=== PATIENT | female | born 2000 | race American Indian/Alaskan Native ===

== ENCOUNTER 2018-12-11 18:59 | Emergency (ER) | payer SELFPAY ==
--- NOTE | 2018-12-11 19:48 | Event Note ---
ED Screening Note Date of service: 12/11/18 Time: 19:46 ED Screening Note: This is a 18 y.o. F. that presents to the ER with laceration to left 5th finger. 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 This initial assessment/diagnostic orders/clinical plan/treatment(s) is/are subject to change based on patients health status, clinical progression and re- assessment by fellow clinical providers in the ED. Further treatment and workup at subsequent clinical providers discretion. Patient/guardian urged not to elope from the ED as their condition may be serious if not clinically assessed and managed. Initial orders include: XR fingers
--- NOTE | 2018-12-11 20:13 | XRay Report ---
LEFT LITTLE FINGER 3 VIEWS INDICATION: MAIN: r/o foreign object 5th finger...PT SD CUT WITH GLASS TDY..JTS. COMPARISON: No relevant prior imaging study available. FINDINGS: There is no acute skeletal abnormality. No radiodense foreign bodies are seen. There is mild soft tis kourtney swelling along the ulnar aspect of the little finger superficial to the PIP articulation. IMPRESSION: 1. No radiodense foreign bodies. Signer Name: Omari Jo MD Signed: 12/11/2018 8:08 PM Workstation Name: [id number]
--- NOTE | 2018-12-11 22:54 | Emergency Department Report ---
ED Laceration HPI - HPI Chief Complaint: Wound/Laceration Stated Complaint: LACERATION ON L FINGER Time Seen by Provider: 12/11/18 19:45 Occurred When: Today Location: Upper Extremity (left small finger with laceration) Severity: severe (7/10 initially but no pain now) Tetanus Status: Up to Date (2 years ago) Laceration Symptoms: Yes Pain (initially but none now), No Foreign Body Sensation, No Numbness, No Weakness Other History: This is a 18-year-old female who reports that couple hours prior to coming to the emergency room she cut her finger on glass object and she was having a lot of bleeding and she placed pressure and stop bleeding but she is here to be evaluated. Tetanus vaccines up-to-date per patient. Denies any numbness or tingling to left hand or small finger were cut is located. Pain is 7 out of 10 initially but she said she is really not having any pain at present unless it is touch. Denies any difficulty in moving fingers of left hand. ED Review of Systems ROS: Stated complaint: LACERATION ON L FINGER Other details as noted in HPI Constitutional: denies: chills, fever Respiratory: denies: cough, shortness of breath, wheezing Cardiovascular: denies: chest pain, palpitations Musculoskeletal: arthralgia. denies: back pain, joint swelling Skin: other (laceration left hand at the fifth digit) Neurological: denies: headache, numbness, paresthesias ED Past Medical Hx - Past Medical History Previous Medical History?: No - Surgical History Past Surgical History?: No - Family History Family history: hypertension - Social History Smoking Status: Never Smoker Substance Use Type: None - Medications Home Medications: Home Medications Medication Instructions Recorded Confirmed Last Taken Type cephALEXin [Keflex] 500 mg PO Q8HR 5 Days #15 cap 12/12/18 Unknown Rx Laceration Physical Exam - Exam General: Vital signs noted. No distress. Alert and acting appropriately. This is a 18-year-old female well-nourished well-developed in no acute distress Wound Length (cm): 3 Laceration Location: Upper Extremity (left hand at fifth digits at mid phalanx) Full Body Front + Back: 1 - Patient with superficial laceration to left lateral fifth digit to left hand with minimal bleeding. Tender to palpate but no restriction in movement of finger. Linear. No signs of infection or no foreign body noted. Located at mid phalanx. Laceration Exam: Yes Normal Distal CMS (No cce. + 2 pulses in all extremities, no neurovascular compromise), No Foreign Body, No Exposed Tendon, Vessel, or Nerve, No Tendon Injury ED Course Vital Signs 12/11/18 19:27 Temperature 98.6 F Pulse Rate 69 Respiratory 16 Rate Blood Pressure 137/73 O2 Sat by Pulse 98 Oximetry - Reevaluation(s) Reevaluation #1: 12/12/18 00:47 Patient received Keflex 500 mg by mouth and wound irrigated with 500 mL of norm al saline. Please see procedure note for detail and laceration repair she is stable and in no acute distress - Laceration /Wound Repair Left Medial Palm Finger Wound Location: upper extremity (left fifth digits) Wound Length (cm): 3 Wound's Depth, Shape: superficial, linear Wound Explored: clean Irrigated w/ Saline (ccs): 250 Betadine Prep?: Yes Wound Repaired With: Steri-strips Number of Sutures: 5 (Steri-Strips apply) Sterile Dressing Applied?: Yes Progress: Patient tolerated procedure well. ED Medical Decision Making - Radiology Data Radiology results: report reviewed X-ray of left small finger 3 views dictated by radiologist and report reviewed by myself. Please see details below Findings [facility] [address] [place] [address] XRay Report Signed Patient: DAVIDE TARIQ MR#: [id number] : 2000 Acct:[id number] Age/Sex: 18 / F ADM Date: 12/11/18 Loc: ED Attending Dr: Ordering Physician: ROBBIN MORA Date of Service: 12/11/18 Procedure(s): XR finger(s) 2+V LT Accession Number(s): [id number] cc: ROBBIN MORA Fluoro Time In Minutes: LEFT LITTLE FINGER 3 VIEWS INDICATION: MAIN: r/o foreign object 5th finger...PT SD CUT WITH GLASS TDY..JTS. COMPARISON: No relevant prior imaging study available. FINDINGS: There is no acute skeletal abnormality. No radiodense foreign bodies are seen. There is mild soft tissue swelling along the ulnar aspect of the little finger superficial to the PIP articulation. IMPRESSION: 1. No radiodense foreign bodies. Signer Name: Omari Jo MD Signed: 12/11/2018 8:08 PM Workstation Name: [id number] Transcribed By: SW Dictated By: Omari Jo MD Electronically Authenticated By: Omari Jo MD Signed Date/Time: 12/11/182007 - Medical Decision Making This is a 18-year-old female status post laceration to left fifth finger. Laceration repair under sterile procedure with Steri-Strips that she tolerated well. She was started on Keflex to prevent infection. Patient is stable and in no pain in her tetanus vaccines up-to-date. X-ray of left small finger shows no acute fracture abnormality and no foreign body seen. This was dictated by radiologist and report reviewed by myself. I discussed this with patient and also diagnosis and treatment plan and she voiced understanding and she is to follow-up with her primary care physician in 2-3 days. I discussed care of Steri-Strips with her and she voiced understanding. Discharged home with her family. - Differential Diagnosis close versus open fracture, simple laceration, FB with LAC Critical care attestation.: If time is entered above; I have spent that time in minutes in the direct care of this critically ill patient, excluding procedure time. ED Disposition Clinical Impression: Laceration of little finger without foreign body without damage to nail Qualifiers: Encounter type: initial encounter Laterality: left Qualified Code(s): S61.217A - Laceration without foreign body of left little finger without damage to nail, initial encounter Disposition: DC-01 TO HOME OR SELFCARE Is pt being admited?: No Does the pt Need Aspirin: No Condition: Stable Instructions: Skin Adhesive Care (ED), Finger Laceration (ED) Additional Instructions: Please keep affected area clean and dry and please do not remove Steri-Strips. They will follow off on their own. Keep dressing on for 2 days then remove. Take Antibiotic as prescribed If you develop redness, drainage, restriction in movement with redness extending up your left hand with increased pain and fever or chills, please return to the emergency room otherwise follow-up with primary care physician and 2-3 days for recheck. Referrals: PRIMARY CARE,MD [Primary Care Provider] - 2-3 Days [facility] [Outside] - 2-3 Days Forms: Work/School Release Form(ED)
[2018-12-11] MEDS ORDERED: NACL 0.9% 1000 ML 1,000 ML IV ONE (23:02)
[2018-12-11] MEDS ORDERED: KEFLEX PO ONE (23:02)
[2018-12-12 01:06] VITALS: BP 115/68
== END 2018-12-12 01:06 | disposition home or self-care (01) ==
LOC: ED 18:59
DX: S61.217A Laceration without foreign body of left little finger without damage to nail, initial encounter (principal); W25.XXXA Contact with sharp glass, initial encounter; Y93.89 Activity, other specified; Y92.89 Other specified places as the place of occurrence of the external cause; Y99.8 Other external cause status
CPT/HCPCS: 96360; 99283